=== PATIENT | male | born 1955 | race Caucasian/White ===

== ENCOUNTER 2020-01-01 08:17 | Day surgery (SDC) | payer MEDICARE, OTHER ==
[~2020-01-01] VITALS: Ht 170.2 cm; Wt 117.9 kg
--- NOTE | ~2020-01-01 | OR ---
[facility] [address], [place] [address] Draft DATE OF OPERATION: 01/01/2020 SURGEON: Slava Mares MD PREOPERATIVE DIAGNOSIS: Left neck skin lesion. POSTOPERATIVE DIAGNOSIS: Left neck skin lesion. PROCEDURE: Wide local excision of left neck skin lesion. ANESTHESIA: General LMA. PAINTER DRUM: Kel. PREOPERATIVE HISTORY: Codey is a 64-year-old man with a nonhealing lesion in the left neck skin, this is several cm inferior to the mastoid process, it has been present for several months. He is taken to the operating for the above-mentioned procedures. OPERATIVE PROCEDURE AND FINDINGS: After informed consent, the patient was taken to the operating room, placed in supine position where general LMA anesthesia was induced. The patient and procedure were verified. The patient was repositioned, turning head to the right, exposing the lesion in the left neck lateral surface just beneath the mastoid process several cm. The lesion in question was about 2 cm of superficial ulceration surrounded by several cm of induration very hard tissue. The left neck was sterilely prepped and draped. The lesion in question was excised after 1% lidocaine with epi with about 2 cm margins, elliptical excision, total length of excision approximately 7 cm. The lesion was excised sharply down through skin with lots of indurated granular fibrotic tissue beneath the excision. The superficial portion was sent to pathology for frozen section diagnosis and this came back benign, scar tissue fibrotic to allow for ease of closure. The wound edges were elevated about 2 cm superiorly and inferiorly. The indurated tissue in the depth of the wound was also excised down to the sternocleidomastoid muscle and fat. The bleeding was controlled with needle point cautery. Hemostasis was obtained. The wound was copiously lavaged and the wound was then closed over a PATIENT NAME: CODEY TELLEZ OPERATIVE REPORT DATE OF : 51 REPORT #: [id number] PHYSICIAN: SLAVA MARES MD PCP: NO PRIMARY CARE PHYSICIAN REPORT IS CONFIDENTIAL AND NOT TO BE RELEASED WITHOUT AUTHORIZATION [facility] [address], [place] [address] Draft quarter-inch Kate drain exiting mid wound with 4-0 interrupted Vicryl subcu, holly in the skin and a fluff type pressure dressing was applied. The patient was then awakened, extubated, transported to the recovery room in good condition. No complications. BLOOD LOSS: Minimal. SPECIMEN: To pathology. DRAIN: Kate. Slava Mares MD GC/MODL /[id number] Copies: ~ PATIENT NAME: CODEY TELLEZ OPERATIVE REPORT DATE OF : 51 REPORT #: [id number] PHYSICIAN: SLAVA MARES MD PCP: NO PRIMARY CARE PHYSICIAN REPORT IS CONFIDENTIAL AND NOT TO BE RELEASED WITHOUT AUTHORIZATION
[~2020-01-01 08:17] MED LIST: AMLODIPINE BESY10 MG PO; LISINOPRIL5 MG PO; METOPROLOL SUCC25 MG PO
[2020-01-01] MEDS ORDERED: NORVASC5 MG PO (08:21)
[2020-01-01] MEDS ORDERED: METOPROLOL SUC200 MG PO (08:22)
[2020-01-01] MEDS ORDERED: LISINOPRIL-HCT1 EACH PO (08:23)
--- NOTE | 2020-01-01 11:12 | NUR ---
01/01/20 1112 Graciela Keller 1033 PT ARRIVED IN PACU SLEEPY WITH NO C/O'S. 1045 SITTING UP IN BED SIPPING ON WATER. REINFORCED DRSG TO L SIDE OF NECK. 1100 NO C/O'S. TO DS. FAMILY AT BEDSIDE. COFFEE, WATER AND CALL LITE GIVEN.
--- NOTE | 2020-01-01 11:20 | NUR ---
PATIENT BACK IN DAY SURGERY ROOM FROM PACU. DENIES PAIN. TOLERATING WATER AND COFFEE. LEFT POSTERIOR NECK DRESSING CDI. VS CHECKED. IV SITE WNL. SCDs ON. MOTHER AT BEDSIDE. CALL LIGHT WITHIN REACH.
[2020-01-01] MEDS ORDERED: HYDROCODON-ACE1 EA10 PO (11:31)
--- NOTE | 2020-01-01 13:05 | NUR ---
1135: PATIENT TOLERATED COFFEE. DISCHARGE INSTRUCTIONS GIVEN TO PATIENT AND MOTHER. PATIENT ASSISTED OOB AND TO WALK AROUND ROOM. GAIT STEADY. PATIENT GETTING DRESSED. 1155: IV DC'D WNL. TIP INTACT. DRESSING APPLIED. VS CHECKED. 1200: PATIENT DISCHARGED TO HOME VIA WHEELCHAIR WITH MOTHER.
--- NOTE | 2020-01-02 19:31 | PATH ---
[facility] [address] [place], [place] [address] Signed SPECIMEN(S): A LEFT NECK SPECIMEN SOURCE: A. LEFT NECK CLINICAL HISTORY: Excision left neck skin tumor with possible split thickness skin graft. FINAL PATHOLOGIC DIAGNOSIS: Skin, left neck, excision: - Dermal scar, chronic inflammation, and reparative changes associated with overlying reactive epidermis with focal ulceration. - No evidence of malignancy. COMMENT: As part of [employer] Quality Improvement Program, this case was reviewed by another member of our pathology staff. NAL:JOSE ELIAS:cml:C2NR MICROSCOPIC EXAMINATION: Histologic sections of all submitted blocks are examined by light microscopy. These findings, together with the gross examination, support the pathologic diagnosis. GROSS DESCRIPTION: The specimen, labeled "HE," and designated on the requisition "left neck skin lesion," is received fresh for frozen section diagnosis and per the requisition consists of "a 2.5 x 1.0 x 0.6 cm skin ellipse with suture designated superior. The surface of the skin has a 1.5 x 0.4 cm ulcerated lesion. Suture arbitrarily designates 12 o'clock. The specimen is inked as follows: 12-3 = purple, 3-6-9 = blue, 9-12 = green, deep = black. Lesion is 0.2 cm from approximately 8 o'clock and 10 o'clock edges. Plastics Scientist sections submitted for frozen section. There is a cassette labeled "H, ROSALINDA FS 1" containing a section of tissue that is re-submitted in cassette A1, and a cassette labeled "ROSALINDA FS2" containing a section of tissue that is resubmitted in cassette A2. The remainder of the skin ellipse is further sectioned following the plane of previous sectioning and submitted entirely as follows: (A3) tips, en face PATIENT NAME: SHANICE TELLEZ PATHOLOGY DATE OF : 51 REPORT #: [id number] PHYSICIAN: RICKY PATHOLOGY PCP: NO PRIMARY CARE PHYSICIAN REPORT IS CONFIDENTIAL AND NOT TO BE RELEASED WITHOUT AUTHORIZATION [facility] [address], [place] [address] Signed (A4) remainder of ellipse, serially sectioned FROZEN SECTION: A. Left neck skin lesion:FS 1 = complete cross-section through lesion at 12 o'clock; FS2 = complete cross section of lesion at closest margins (10 o'clock and 8 o'clock). Refer to permanents, no evidence of malignancy in rental sales representative sections frozen. (Dr. Martinez, 01/01/2020, 10:23 AM) FROZEN SECTION DIAGNOSIS: Left neck skin lesion: - No evidence of malignancy in rental sales representative sections frozen. 01/01/2020 10:23 a.m. Ashley Martinez M.D. Frozen section diagnoses called to Dr. Mares at 10:23 AM. AC (under the direct supervision of a pathologist) The Gross Description was prepared using a voice recognition system. The report was reviewed for accuracy; however, sound-alike word errors, addition and/or deletions may occur. If there is any question about this report, please contact Client Services. PERFORMING LABORATORY: [facility] [address] [address] (CLIA# [id number]). The technical component was performed by [employer], [address] [place] [id number] (Floral Clerk: Suyapa Miller MD; CLIA# [id number]). Diagnostician: Ashley Martinez MD Pathologist Electronically Signed 01/02/2020 Copies: ~ PATIENT NAME: ROSALINDASHANICE Dea PATHOLOGY DATE OF : 51 REPORT #: [id number] PHYSICIAN: RICKY PATHOLOGY PCP: NO PRIMARY CARE PHYSICIAN REPORT IS CONFIDENTIAL AND NOT TO BE RELEASED WITHOUT AUTHORIZATION
== END 2020-01-01 12:00 | disposition home or self-care (01) ==
LOC: DS 08:17 → OPS 08:17 → DS 09:45 → OPS 10:15
PROVIDERS: ATTEND Otolaryngology
PROC: 0HB4XZZ Excision of Neck Skin, External Approach (ICD-10-PCS; principal; 2020-01-01 10:15)
DX: L98.499 Non-pressure chronic ulcer of skin of other sites with unspecified severity (principal); L90.5 Scar conditions and fibrosis of skin; I10 Essential (primary) hypertension; F17.200 Nicotine dependence, unspecified, uncomplicated; Z88.0 Allergy status to penicillin; Z79.899 Other long term (current) drug therapy
CPT/HCPCS: 00300; J1100; J1885; J2001; J2405; J2704; J3010; J7121